=== PATIENT | male | born 1990 | race Caucasian/White ===

== ENCOUNTER 2021-07-04 19:32 | Emergency (ER) | payer BC, MEDICAID ==
--- NOTE | 2021-07-04 19:51 | EDM.PDOC ---
ED HPI GENERAL MEDICAL PROBLEM - General Chief Complaint: Lower Extremity Injury/Pain Stated Complaint: ANKLE PAIN Time Seen by Provider: 07/04/21 19:32 Source of Information: Reports: Patient History Limitations: Reports: No Limitations - History of Present Illness INITIAL COMMENTS - FREE TEXT/NARRATIVE: Jasbir is a 31 year old male who presents to ER with complaints of left ankle pain. Was out fishing this afternoon, slipped on the rocks and rolled his ankle. Did swell immediately. Has pain with weight bearing. Did not hurt himself elsewhere. Onset: Today, Sudden Duration: Hour(s):, Constant Location: Reports: Lower Extremity, Left Quality: Reports: Ache, Throbbing Severity: Mild Improves with: Reports: Rest Worsens with: Reports: Movement Context: Reports: Trauma Associated Symptoms: Reports: No Other Symptoms Past Medical History - Past Health History Medical/Surgical History: Denies Medical/Surgical History Social & Family History - Tobacco Use Tobacco Use Status *Q: Unknown Ever Used Tobacco Review of Systems - Review of Systems Review Of Systems: Comprehensive ROS is negative, except as noted in HPI. ED EXAM, GENERAL - Physical Exam Exam: See Below Exam Limited By: No Limitations General Appearance: Alert, WD/WN, No Apparent Distress Extremities: Joint Swelling, Limited Range of Motion (pain to lateral left malleolar region. Pain with inversion/eversion. No redness or warmth.) Neurological: Alert, Oriented Skin Exam: Warm, Dry Course - Orders/Labs/Meds Orders: Active Orders 24 hr Category Date Time Status Ankle Min 3V Lt [CR] Stat Exams 07/04/21 19:41 Ordered - Re-Assessments/Exams Free Text/Narrative Re-Assessment/Exam: 07/04/21 20:00 Xrays appear negative. Joshua wrap applied to ankle. Departure - Departure Time of Disposition: 20:00 Disposition: Home, Self-Care 01 Condition: Good Clinical Impression: Left ankle sprain - Discharge Information *PRESCRIPTION DRUG MONITORING PROGRAM REVIEWED*: No *COPY OF PRESCRIPTION DRUG MONITORING REPORT IN PATIENT KEO: No Instructions: Ankle Sprain Forms: ED Department Discharge Additional Instructions: 1. Rest ankle 2. Elevate as much as possible tonight 3. Ice frequently, 20 minutes on, 20 minutes off 4. Weight bear as tolerated 5. Ibuprofen 400-600 mg every 6 hours for pain and swelling as needed 6. We will notify you of any concerns with the xray. 7. Call with any questions or concerns. - My Orders Last 24 Hours: My Active Orders 07/04/21 19:41 Ankle Min 3V Lt [CR] Stat - Assessment/Plan Last 24 Hours: My Active Orders 07/04/21 19:41 Ankle Min 3V Lt [CR] Stat
--- NOTE | 2021-07-04 20:13 | CR ---
[id number] RAD/RAD Ankle Left 3V Min EXAM: RAD Ankle Left 3V Min INDICATION: TRAUMA COMPARISON: None. DISCUSSION: Lateral soft tissue swelling. Tiny age-indeterminate avulsion fracture either off the lateral process of the talus or the adjacent distal tip of the fibula. No dislocation or other osseous abnormality is identified. IMPRESSION: 1. Tiny avulsion fracture off the lateral process of the talus or tip of the lateral malleolus. Ganga Gee MD 07/04/212011 Thank you for allowing us to participate in the care of your patient.
== END 2021-07-04 23:00 | disposition home or self-care (01) ==
LOC: VM.ED 19:32
DX: S93.402A Sprain of unspecified ligament of left ankle, initial encounter (principal); X50.1XXA Overexertion from prolonged static or awkward postures, initial encounter
CPT/HCPCS: 73610-LT; 99283; 99283-25